=== PATIENT | female | born 1980 | race Hispanic/Latino ===

== ENCOUNTER 2021-01-18 08:31 | Emergency (ER) | payer MEDICAID ==
[2021-01-18] MEDS ORDERED: IBUPROFEN 600 MG TABLET ONE (09:26)
== END 2021-01-18 09:31 | disposition home or self-care (01) ==
LOC: EDH 08:31
DX: T20.10XA Burn of first degree of head, face, and neck, unspecified site, initial encounter (principal); X19.XXXA Contact with other heat and hot substances, initial encounter; T31.0 Burns involving less than 10% of body surface; Y93.89 Activity, other specified; Y92.89 Other specified places as the place of occurrence of the external cause; Y99.8 Other external cause status
CPT/HCPCS: 16000; 99282